=== PATIENT | female | born 1940 | race Caucasian/White ===

== ENCOUNTER 2016-03-19 06:23 | Observation (INO) | payer OTHER ==
[~2016-03-19] VITALS: Ht 162.6 cm; Wt 54.0 kg
--- NOTE | ~2016-03-19 | D ---
[facility] [address] [address] DISCHARGE SUMMARY Name: MARU REAGNA Room #: 205-P [facility] Pooja Yan#: [id number] Admission: 03/19/16 Attend Phys: Eric Barnett MD Discharge: 03/20/16 Date of : 44 Report #: [id number] THIS REPORT FOR: //name// CC: VY Barnett DISCHARGE DIAGNOSES: 1. Atrial fibrillation. 2. Severe chronic obstructive pulmonary disease. PROCEDURES PERFORMED: Pacemaker with AV node ablation with a [employer] therapist. HISTORY: The patient is a 75-year-old with multiple recent hospitalizations for atrial fibrillation with rapid ventricular response. She has difficult to control rates. She has had to be placed on amiodarone therapy for rate control, but this was not considered a long-term solution given her severe COPD and risk of pulmonary toxicity with amiodarone. Therefore, she was here for a pacemaker with AV node ablation. Her most recent echo showed an EF of 60-65%. The patient underwent successful implantation of a pacemaker and then successful ablation of her AV node. HOSPITAL COURSE: The patient was monitored overnight. There were no complications. The following day, her device was interrogated and found to be functioning normally. There was no underlying rhythm. Her thresholds were stable. Her chest x-ray the following day showed no evidence of pneumothorax, stable lead position and no other pulmonary related issues. The patient was doing well with some complaints of some cough, but no worsening shortness of breath. Her physical exam was within normal limits with normal cardiac exam and pulmonary exam with some mild expiratory wheezes and her incision was healing nicely with some mild bruising, but no hematoma. As such, she was deemed stable for discharge home. Discharge medications were reviewed. Discharge instructions were reviewed. She will discontinue amiodarone and diltiazem. She will continue on Synthroid, atorvastatin, hydrocodone, her nebulizers, metoprolol 25 once a day and Xarelto, which she will resume on Wednesday. She will see us in 7-10 days. If her blood pressure is stable, we can also discontinue the metoprolol. <ELECTRONICALLY SIGNED> By: Eric Barnett MD 03/20/16 1223 [id number] Eric Barnett MD /nt
--- NOTE | ~2016-03-19 | H ---
[facility] [address] [address] HISTORY AND PHYSICAL Name: TEZMARU Mono Room #: 205-P [facility] Pooja Yan#: [id number] Admission: 03/19/16 Attend Phys: Eric Barnett MD Discharge: 03/20/16 Date of : 44 Report #: [id number] THIS REPORT FOR: //name// For History and Physical, please see office documentation/handwritten note in the patient's medical record. <ELECTRONICALLY SIGNED> By: Eric Barnett MD 03/23/16 1656 1353 Eric Barnett MD /
--- NOTE | ~2016-03-19 | P ---
[facility] [place] [address] [place] [address] PROCEDURE REPORT Name: MARU REAGAN Room #: 205-P [facility] Pooja Yan#: [id number] Admission: 03/19/16 Attend Phys: Eric Barnett MD Discharge: 03/20/16 Date of : 42 Report #: [id number] THIS REPORT FOR: //name// CC: VY Barnett AV NODE ABLATION HISTORY: The patient is a 75-year-old with a history of severe COPD as well as atrial fibrillation with difficult to control rates. She has been intolerant of multiple medications and has required amiodarone for rate control. However, the goal is to get her off of this medication given her COPD. Most recent echo shows normal LV size and function. She is here for a pacemaker, AV node ablation. ANESTHESIA: The patient underwent initially MAC anesthesia, but then was converted to general anesthesia due to troubles with coughing. PROCEDURE: She was then prepped and draped in a sterile fashion, received the IV antibiotics and then underwent a venogram showing patency of the left axillary vein. Next, I injected 20 mL of lidocaine below the level of the left clavicle. Incision was made. A pocket was created over the prepectoral fascia and then access was obtained once the left axillary vein using the extrathoracic approach with a guidewire placed into the right atrium under fluoroscopy and a sheath positioned using the modified Seldinger technique. Next, the lead was positioned in the right ventricular apex with adequate pacing and sensing thresholds. This lead was sutured to the prepectoral fascia connected to the pacemaker and then the pocket was irrigated with vancomycin. Next, the pacemaker pocket was closed in 3 layers using 2-0 for the deep layer, 3-0 for the mid layer, 4-0 for the subcuticular layer and surgical glue was placed to the outer skin. Next, the right femoral vein was prepped in a sterile fashion and I injected 5 mL of lidocaine and access was obtained to the right femoral vein x 1 and a SR0 sheath was positioned using the modified Seldinger technique, an 8 mm ablation catheter was placed into the right atrium and was found, ablation was performed at 70 trevino and 60 degrees with heart block induced within 5 seconds. The patient was monitored for a period of 25-30 minutes; there was no return of conduction. The RV lead was retested and found to be functioning normally. Catheters and sheaths were pulled. Hemostasis was obtained and the patient awoke neurologically and hemodynamically intact with no complications and no significant bleeding. The implanted pacemaker was a [employer] model # KY7149, serial #[id number] with a RV lead made by [employer], model #2088TC, 58 cm, serial #[id number]. The RV lead demonstrated an R-wave of greater than 12 millivolts with a good injury current pacing impedance of 730 ohms and the pacing threshold of 0.75 volts at [address] [address] PROCEDURE REPORT Name: TEZMARU Mono Room #: 205-P KATHY Yan#: [id number] Admission: 03/19/16 Attend Phys: Eric Barnett MD Discharge: 03/20/16 Date of : 44 Report #: [id number] 0.4 milliseconds. The device was programmed to the VVIR 80-130 mode. CONCLUSIONS: 1. Successful pacemaker implantation. 2. Satisfactory right ventricular pacing and sensing thresholds. 3. Successful AV node ablation. <ELECTRONICALLY SIGNED> By: Eric Barnett MD 03/20/16 1223 1105 [id number] Eric Barnett MD /nt
[2016-03-19 07:09] LABS: HEMATOCRIT 37.6 % (37.0-47.0); HEMOGLOBIN 12.3 gm/dL (12.0-15.0); MCH 29.6 pg (26.0-34.0); MCHC 32.6 % (28.0-37.0); MCV 90.7 fL (80.0-100.0); PLATELET COUNT 425 thou/uL (150-400); RBC 4.15 mil/uL (4.20-5.00); RDW 14.6 % (10.5-14.5); WBC 10.3 thou/uL (4.0-11.0)
[2016-03-19 07:10] LABS: MANUAL DIFF YES
[2016-03-19 07:15] VITALS: BP 132/57
[2016-03-19] MEDS ORDERED: LIPITOR 20 MG T20 M1 PO (07:20)
[2016-03-19] MEDS ORDERED: LEVOTHYROXIN0.075 MG PO (07:20)
[2016-03-19] MEDS ORDERED: NORCO 10-325 T1 EACH PO (07:21)
[2016-03-19] MEDS ORDERED: XOPENEX 0.63 MG/3 M1 INH (07:21)
[2016-03-19 07:22] LABS: CALCIUM 8.9 mg/dL (8.5-10.1); CREATININE 0.8 mg/dL (0.6-1.3); POTASSIUM 4.2 mmol/L (3.5-5.1)
[2016-03-19] MEDS ORDERED: TOPROL XL25 MG PO (07:22)
[2016-03-19] MEDS ORDERED: COMBIVENT INH (07:22)
[2016-03-19] MEDS ORDERED: PACERONE 200 M200 M1 PO (07:23)
[2016-03-19] MEDS ORDERED: XARELTO20 MG PO (07:23)
[2016-03-19] MEDS ORDERED: CARDIZEM CD120 MG PO (07:24)
[2016-03-19 07:25] LABS: PROTIME 9.7 Seconds (9.3-11.4)
[2016-03-19 07:27] LABS: ALBUMIN 3.7 g/dL (3.4-5.0); TOTAL BILIRUBIN 0.3 mg/dL (<0.1-1.0)
[2016-03-19 07:30] LABS: ABSOLUTE NEUTROPHILS 7.2 thou/uL (1.4-8.2); TOTAL CELL COUNT 100
[2016-03-19 07:31] LABS: PLATELET ESTIMATE INCREASED
[2016-03-19 17:00] VITALS: BP 102/47
[2016-03-19 19:28] VITALS: BP 109/45
[2016-03-19 23:46] VITALS: BP 131/46
[2016-03-20 04:12] VITALS: BP 145/52
[2016-03-20 10:04] VITALS: BP 145/52
== END 2016-03-20 11:49 | disposition home or self-care (01) ==
LOC: CATH 06:23 → 2N 14:02
PROVIDERS: Internal Medicine Cardiovascular Disease
DX: I48.91 Unspecified atrial fibrillation (principal); J44.9 Chronic obstructive pulmonary disease, unspecified; I10 Essential (primary) hypertension; I47.1 Supraventricular tachycardia; E03.9 Hypothyroidism, unspecified; Z98.890 Other specified postprocedural states; Z79.2 Long term (current) use of antibiotics; Z79.899 Other long term (current) drug therapy
CPT/HCPCS: 62110; 70005